=== PATIENT | female | born 1995 | race Caucasian/White ===

== ENCOUNTER 2017-07-25 08:04 | Emergency (ER) | payer MEDICAID ==
[~2017-07-25] VITALS: Ht 157.5 cm; Wt 52.2 kg
[2017-07-25 08:04] VITALS: BP_SYST 111
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
--- NOTE | 2017-07-25 08:10 | NUR ---
Dr. Calixto assessing pt.
[2017-07-25 08:21] VITALS: BP_SYST 122
--- NOTE | 2017-07-25 08:25 | NUR ---
Patient and [employer] given written and verbal discharge instructions and verbalizes understanding. ER MD discussed with patient the results and treatment provided. Patient in stable condition. ID arm band removed. No Rx given. Patient educated on pain management and to follow up with PMD. Pain Scale 2/10. Opportunity for questions provided and answered. Leaves in c/o of ship's officer, ambulatory with steady gait, in cuffs.
== END 2017-07-25 08:21 ==
LOC: SED 08:04
DX: S00.83XA Contusion of other part of head, initial encounter (principal); M25.512 Pain in left shoulder; V89.2XXA Person injured in unspecified motor-vehicle accident, traffic, initial encounter; Y93.89 Activity, other specified; Y92.488 Other paved roadways as the place of occurrence of the external cause; Y99.8 Other external cause status
CPT/HCPCS: 99283